=== PATIENT | male | born 1960 ===

== ENCOUNTER → 2023-08-04 06:38 | Outpatient (REF) | payer BC, SELFPAY ==
[2023-08-04 08:49] LABS: Blood Urea Nitrogen 18 mg/dl (9-20); Calcium 9.8 mg/dl (8.4-10.2); Carbon Dioxide 27 mmol/L (22-30); Chloride 102 mmol/L (98-107); Glucose 209 mg/dl (70-99); Potassium 4.1 mmol/L (3.5-5.1); Sodium 139 mmol/L (135-145); eGFR > 60.00
[2023-08-04 08:50] LABS: Glycohemoglobin (HgbA1c) 10.7 % (4.0-5.6)
[2023-08-04 09:23] LABS: PSA, Total - Screen 1.01 ng/ml (0.0-4.0); TSH Reflex To Free T4 0.77 uIU/ml (0.47-4.68)
== END ==
LOC: REG 06:38
PROVIDERS: ATTENDING PHYSICIAN Emergency Medicine
DX: R73.01 Impaired fasting glucose (principal); Z12.5 Encounter for screening for malignant neoplasm of prostate; Z00.00 Encounter for general adult medical examination without abnormal findings; E66.09 Other obesity due to excess calories; Z68.33 Body mass index [BMI] 33.0-33.9, adult
CPT/HCPCS: 36415; 80048; 83036; 84443; G0103

== ENCOUNTER → 2023-09-19 07:52 | Outpatient (REF) | payer BC, SELFPAY | LOC: RAD 07:52 | PROVIDERS: ATTENDING PHYSICIAN Emergency Medicine | DX: Z87.442 Personal history of urinary calculi (principal); R10.9 Unspecified abdominal pain | CPT/HCPCS: 76770 ==

== ENCOUNTER 2023-11-11 18:34 | Emergency (ER) | payer BC, SELFPAY ==
[2023-11-11 18:55] LABS: % Basophils 0.6 % (0-2); % Eosinophils 1.6 % (0-6); % Immature Granulocytes 0.2 % (0-0.5); % Lymphocytes 16.6 % (20.5-51.1); % Monocytes 6.2 % (1.7-9.3); % Neutrophils 74.8 % (42.2-75.2); Absolute Basophils 0.1 10^3/uL (0-0.2); Absolute Eosinophils 0.2 10^3/uL (0-0.7); Absolute Monocytes 0.8 10^3/uL (0.1-0.6); Absolute Neutrophils 9.2 10^3/uL (1.4-6.5); Hematocrit 38.7 % (39.0-52.0); Hemoglobin 13.9 g/dL (13.0-18.0); Mean Corp Hgb Conc. 35.9 g/dL (33.0-37.0); Mean Corpuscular Hgb 29.8 pg (27.0-31.0); Mean Platelet Volume 8.8 fL (7.4-10.4); Nucleated Red Blood Cells % 0 % (-); Platelet Count 204 10^3/uL (130-400); Red Blood Cell Count 4.66 10^6/uL (4.70-6.10); Red Cell Dist. Width 13.2 % (11.5-14.5); White Blood Cell Count 12.3 10^3/uL (4.8-10.8)
[2023-11-11 19:41] LABS: ALT (SGPT) 25 U/L (0-50); AST (SGOT) 25 U/L (17-59); Albumin 4.8 g/dl (3.5-5.0); Alkaline Phosphatase 55 U/L (38-126); Blood Urea Nitrogen 28 mg/dl (9-20); Calcium 9.8 mg/dl (8.4-10.2); Carbon Dioxide 29 mmol/L (22-30); Chloride 103 mmol/L (98-107); Glucose 128 mg/dl (70-99); Potassium 4.5 mmol/L (3.5-5.1); Sodium 141 mmol/L (135-145); Total Bilirubin 0.6 mg/dl (0.2-1.3); Total Protein 7.7 g/dl (6.3-8.2); eGFR > 60.00
--- NOTE | 2023-11-11 20:21 | ED.GENMED ---
History of Present Illness
<Eddie Medina PA-C - Last Filed: 11/13/23 07:12>
General
Chief Complaint: Flank Pain
Time Seen by Provider: 11/11/23 20:02
History of Present Illness
History of Present Illness:
63 yo male presents for eval of bilateral, R>L flank pain. L flank ongoing for several weeks, mild in nature. R flank began yesterday, acutely severe and colicky. Does not feel comparable to past kidney stones. Did have a renal US in early september
showing bilateral non obstructing stones. No fevers or chills.
Review of Systems
<DOUGLAS uMñoz Last Filed: 11/13/23 07:12>
Review of Systems
Allergies reviewed?: Yes
All Other Systems: ROS reviewed and negative except as documented in HPI and ROS
Phy Exam
<Eddie Medina PA-C - Last Filed: 11/13/23 07:12>
Physical Exam
Physical Exam:
GEN: Well appearing, NAD, WDWN
Eyes: PERRLA, EOMs intact, no scleral icterus
HENT: NCAT, oral mucosa moist
Lungs: CTAB, no wheezes, rales, rhonchi, normal chest wall excursion
Cardiac: RRR, no M/R/G, no peripheral edema. Radial pulses 2+ bilat
Abdomen: S, NT, ND, NABS, no masses or hepatosplenomegaly
Neuro: AO x 3
MSK: No gross deformity or ecchymosis. No edema. No digital clubbing
Skin: No rashes, petechiae. Normal color, no pallor or jaundice.
Psych: Calm, cooperative, proper hygiene
Course
<DOUGLAS Muñoz Last Filed: 11/13/23 07:12>
Orders/Labs/Results
Orders:
Orders
11/11/23 18:50
Complete Blood Count/With Diff Urgent
Comprehensive Metabolic Panel Urgent
Creatine Phosphokinase Urgent
Comment: ADD ON
11/11/23 20:20
Add On- LAB Urgent
Tests Added?: CPK
CT Abd/Pel (IV only)-DH only Urgent
Comment:
Reason For Exam: bilateral flank pain
11/11/23 20:25
Urinalysis Reflex To Culture Urgent
Date Specimen was Collected: 11/11/23
Time Specimen was Collected: 18:44
Urine Microscopic Reflex Cult Urgent
11/11/23 21:09
Ketorolac [Toradol] 15 mg IV NOW STA
Abnormal Lab Results
11/11/23 11/11/23
18:50 20:25
WBC 12.3 H 10^3/uL
(4.8-10.8)
RBC 4.66 L 10^6/uL
(4.70-6.10)
Hct 38.7 L %
(39.0-52.0)
Absolute Neuts (auto) 9.2 H 10^3/uL
(1.4-6.5)
Absolute Monos (auto) 0.8 H 10^3/uL
(0.1-0.6)
Lymphocytes % 16.6 L %
(20.5-51.1)
BUN 28 H mg/dl
(9-20)
Glucose 128 H mg/dl
(70-99)
Creatine Kinase 49 L U/L
(55-170)
Ur Occult Blood Reflex 4+ A
(Negative)
Leukocyte Esterase Rfl Trace A
(Negative)
Urine RBC 90-100 A /HPF
(0-2)
Urine Bacteria (Reflex) Few A
(Negative)
Urine Glucose 3+ A
(Negative)
11/11/23 18:50
11/11/23 18:50
Vital Signs
Initial and Last Documented VS:
Initial Vital Signs
Temp Pulse Resp Pulse Ox
99.5 F 67 18 97
11/11/23 18:39 11/11/23 18:39 11/11/23 18:39 11/11/23 18:39
Last Documented Vital Signs
Temp Pulse Resp BP Pulse Ox
99.5 F 67 18 136/88 97
11/11/23 18:39 11/11/23 18:39 11/11/23 18:39 11/11/23 23:42 11/11/23 18:39
<MUKESH Braun - Last Filed: 11/11/23 23:41>
Orders/Labs/Results
Orders:
Orders
11/11/23 18:50
Complete Blood Count/With Diff Urgent
Comprehensive Metabolic Panel Urgent
Creatine Phosphokinase Urgent
Comment: ADD ON
11/11/23 20:20
Add On- LAB Urgent
Tests Added?: CPK
CT Abd/Pel (IV only)-DH only Urgent
Comment:
Reason For Exam: bilateral flank pain
11/11/23 20:25
Urinalysis Reflex To Culture Urgent
Date Specimen was Collected: 11/11/23
Time Specimen was Collected: 18:44
Urine Microscopic Reflex Cult Urgent
11/11/23 21:09
Ketorolac [Toradol] 15 mg IV NOW STA
Abnormal Lab Results
11/11/23 11/11/23
18:50 20:25
WBC 12.3 H 10^3/uL
(4.8-10.8)
RBC 4.66 L 10^6/uL
(4.70-6.10)
Hct 38.7 L %
(39.0-52.0)
Absolute Neuts (auto) 9.2 H 10^3/uL
(1.4-6.5)
Absolute Monos (auto) 0.8 H 10^3/uL
(0.1-0.6)
Lymphocytes % 16.6 L %
(20.5-51.1)
BUN 28 H mg/dl
(9-20)
Glucose 128 H mg/dl
(70-99)
Creatine Kinase 49 L U/L
(55-170)
Ur Occult Blood Reflex 4+ A
(Negative)
Leukocyte Esterase Rfl Trace A
(Negative)
Urine RBC 90-100 A /HPF
(0-2)
Urine Bacteria (Reflex) Few A
(Negative)
Urine Glucose 3+ A
(Negative)
11/11/23 18:50
11/11/23 18:50
Vital Signs
Initial and Last Documented VS:
Initial Vital Signs
Temp Pulse Resp Pulse Ox
99.5 F 67 18 97
11/11/23 18:39 11/11/23 18:39 11/11/23 18:39 11/11/23 18:39
Last Documented Vital Signs
Temp Pulse Resp BP Pulse Ox
99.5 F 67 18 136/88 97
11/11/23 18:39 11/11/23 18:39 11/11/23 18:39 11/11/23 23:42 11/11/23 18:39
<Eddie Medina PA-C - Last Filed: 11/13/23 07:12>
MDM/Problems Addressed
MDM/Problems Addressed:
63-year-old male presents with right flank pain, suspect most likely ureteral none, less likely UTI. CT is pending, signed out to Vilma Lindsay [employer]OUNTER awaiting results.
<MUKESH Braun - Last Filed: 11/11/23 23:41>
MDM/Problems Addressed
MDM/Problems Addressed:
63-year-old male presents with right flank pain, suspect most likely ureteral none, less likely UTI. CT is pending, signed out to Vilma Lindsay NP awaiting results.
2339: CAT scan shows 1-2 mm obstructing right UVJ calculus there is a large Dacron calculus involving the left renal pelvis patient comfortable going home while
<MUKESH Braun - Last Filed: 11/11/23 23:41>
*Critical Care Note
Total Time (30-74mins, 75-104mins- exclusive of procedures): Not Applicable
ED Attending Note
<Eddie Medina PA-C - Last Filed: 11/13/23 07:12>
-
Portions of this chart may have been created with voice recognition software.� Occasional wrong word or��sound alike� substitutions may have occurred due to the inherent limitations of voice recognition software.
Discharge Plan
Departure
Patient Disposition: Home (Routine Discharge)
Date of Disposition: 11/11/23
Time of Disposition: 23:39
Patient with high blood pressure during this ER visit?: No
Condition: Fair
Covid-19: Not Applicable
Discharge Problem:
Acute right flank pain
Instructions: Kidney Stones (DC), BLOOD PRESSURE, Narcotic Pain Medication
Prescriptions:
New
tamsulosin [Flomax] 0.4 mg capsule
0.4 mg PO HS Qty: 10 0RF
diclofenac sodium 75 mg tablet,delayed release (DR/EC)
75 mg PO BID Qty: 12 0RF
oxycodone-acetaminophen [Percocet] 5-325 mg tablet
1 tab PO Q6HPRN PRN (Reason: pain) Qty: 8 0RF
No Action
lisinopril 20 MG tablet
20 mg PO DAILY
clopidogrel 75 MG tablet
75 mg PO DAILY
metoprolol tartrate 50 MG tablet
50 mg PO BID
nitroglycerin 0.4 MG tablet, sublingual
0.4 mg sublingual [id number] PRN (Reason: chest pain) Qty: 25 3RF
aspirin 81 MG tablet,chewable
81 mg PO DAILY Qty: 1 0RF
rosuvastatin 20 MG tablet
20 mg PO QPM Qty: 30 3RF
Referrals:
Ellen Arboleda MD [Family Provider] -
Inder Ramirez MD [Active] -
Activity Restrictions/Additional Instructions:
As discussed stay well-hydrated strain all urine. Follow-up with urology in the next several days call tomorrow to make an appointment. You may take Tylenol for discomfort pain medication was sent to pharmacy along with Flomax. Return to the ER
if any worsening of symptoms
Interventions
Interventions:
*Risk Screen - Suicide Last Done: 11/11/23 20:00
*General Assessment Last Done: 11/11/23 18:39
*Neglect/Abuse Screening Last Done: 11/11/23 18:39
*ED COVID-19 Vaccine History Last Done: 11/11/23 20:00
*Nursing Disposition Last Done: 11/11/23 23:48
BA-Dhyohv-Oyoufxnijc Assessment Last Done: 11/11/23 20:14
ED-Male Genitourinary Assessment Last Done: 11/11/23 20:14
Discharge Date and Time
Discharge Date/Time: 11/11/23 23:49
Print Language: LITHUANIAN
[2023-11-11 20:30] LABS: Urine Albumin Trace (Neg - Trace); Urine Bilirubin Negative (Negative); Urine Character Slightly Cloudy (Clear); Urine Color Yellow; Urine Glucose 3+ (Negative); Urine Ketone Negative (Negative); Urine Leukocyte Trace (Negative); Urine Nitrite Negative (Negative); Urine Occult Blood 4+ (Negative); Urine Specific Gravity 1.015 (<1.030); Urine Urobilinogen Negative (Neg - 1+)
[2023-11-11 20:36] VITALS: BP 122/71
[2023-11-11 20:37] LABS: Urine Squamous Cell 0-2 /LPF (Few)
[2023-11-11 20:38] LABS: Urine Red Blood Cell 90-100 /HPF (0-2); Urine White Cell 0-2 /HPF (0-5)
[2023-11-11 20:39] LABS: Urine Bacteria Few (Negative)
[2023-11-11 20:50] LABS: Creatine Phosphokinase 49 U/L (55-170)
[2023-11-11] MEDS: TORADOL 15 MG IV (21:18)
[2023-11-11 23:42] VITALS: BP 136/88
== END 2023-11-11 23:49 | disposition home or self-care (01) ==
LOC: EMR 18:34
PROVIDERS: Emergency Medicine; EMERGENCY PHYSICIAN Emergency Medicine; FAMILY PHYSICIAN Emergency Medicine
DX: R10.9 Unspecified abdominal pain (principal); N20.2 Calculus of kidney with calculus of ureter; Z79.82 Long term (current) use of aspirin; Z87.442 Personal history of urinary calculi
CPT/HCPCS: 99285; 96374; 74177; 80053; 81003; 81015; 82550; 85025; Q9967

== ENCOUNTER → 2023-11-21 06:19 | Outpatient (REF) | payer BC, SELFPAY ==
[2023-11-21 07:25] LABS: Urine Albumin Trace (Neg - Trace); Urine Bilirubin Negative (Negative); Urine Character Slightly Cloudy (Clear); Urine Color Yellow; Urine Glucose 3+ (Negative); Urine Ketone Negative (Negative); Urine Leukocyte Negative (Negative); Urine Nitrite Negative (Negative); Urine Occult Blood 4+ (Negative); Urine Urobilinogen Negative (Neg - 1+)
[2023-11-21 07:38] LABS: Blood Urea Nitrogen 21 mg/dl (9-20); Calcium 9.8 mg/dl (8.4-10.2); Carbon Dioxide 34 mmol/L (22-30); Chloride 100 mmol/L (98-107); Glucose 121 mg/dl (70-99); Potassium 4.1 mmol/L (3.5-5.1); Sodium 139 mmol/L (135-145); eGFR > 60.00
[2023-11-21 09:08] LABS: Microalbumin, Random Urine 8.6 mg/dl (0.6-1.7)
[2023-11-21 09:45] LABS: Glycohemoglobin (HgbA1c) 6.4 % (4.0-5.6)
[2023-11-21 09:57] LABS: Urine Amorphous Seen; Urine Mucus Moderate; Urine Red Blood Cell >100 /HPF (0-2); Urine White Cell 0-2 /HPF (0-5)
[2023-11-21 11:45] LABS: Microalbumin/creatinine Ratio 43.2 mg/g
== END ==
LOC: REG 06:19
PROVIDERS: ATTENDING PHYSICIAN Emergency Medicine
DX: E11.65 Type 2 diabetes mellitus with hyperglycemia (principal); E11.69 Type 2 diabetes mellitus with other specified complication
CPT/HCPCS: 36415; 80048; 81003; 81015; 82043; 82570; 83036

== ENCOUNTER 2023-12-17 11:03 | Inpatient (IN) | payer BC, SELFPAY ==
[2023-12-17] VITALS (15 sets, daily range): BP systolic 61–181; BP diastolic 69–95
[2023-12-17 09:53] LABS: Hematocrit 42.2 % (39.0-52.0); Hemoglobin 14.9 g/dL (13.0-18.0); Mean Corp Hgb Conc. 35.3 g/dL (33.0-37.0); Mean Corpuscular Volume 85.1 fL (80.0-94.0); Platelet Count 206 10^3/uL (130-400); Red Blood Cell Count 4.96 10^6/uL (4.70-6.10); Red Cell Dist. Width 13.2 % (11.5-14.5); White Blood Cell Count 7.6 10^3/uL (4.8-10.8)
[2023-12-17 10:03] LABS: PT 14.2 Sec (11.4-14.6)
[2023-12-17 10:08] LABS: Glucose 121 mg/dl (70-99)
[2023-12-17] MEDS: ROCEPHIN 2000 MG IV (10:36)
[2023-12-17] MEDS: STERILE WATER FOR INJECTION 20 ML IV (10:36)
--- NOTE | 2023-12-17 12:12 | IR.POSTOP ---
IRAD Post Procedure Note
-
Description of Findings:
Successful Left PCNU placement for PCNL access.
[2023-12-17 12:37] LABS: Glucose - Point of Care 90 mg/dl (70-99)
[2023-12-17 13:40] LABS: Glucose - Point of Care 98 mg/dl (70-99)
[2023-12-17] MEDS: ULTRAM 50 MG PO (14:11)
[2023-12-17] MEDS: ROXICODONE 5 MG PO (16:58)
[2023-12-17] MEDS: APRESOLINE 10 MG IV (16:58)
[2023-12-17] MEDS: GLUCOPHAGE 500 MG PO (16:59)
[2023-12-17] MEDS: CRESTOR 20 MG PO (17:03)
--- NOTE | 2023-12-17 17:47 | HP.FOC2 ---
Focused History & Physical
Chief Complaint
HPI:
Chief Complaint: left staghorn stone
HPI / Indication for Planned Procedure:
63M w/ incidentally noted large left staghorn stone w/o hydronephrosis on CT imaging.
Admitted post-procedure from IR (s/p left PCNU placement w/ access to bladder) earlier today.
Scheduled for left PCNL tomorrow.
Relevant Past Medical History: Diabetes and Hypertension
Relevant Social History: Negative
Relevant Family History: Negative
Relevant Past Surgical History: Negative
Review of Systems
Review of Pertinent Systems: All Systems Negative Except for the Following Positives (left flank pain (s/p left PCNU placement 12/16), bloody urine output per left PCNU)
Medication
See Medication form for detailed medications: Yes
Medication List (including Herbals & OTC):
lisinopril 20 mg tablet 20 mg PO DAILY Blood Pressure 05/29/16
metoprolol tartrate 50 mg tablet 50 mg PO BID Blood Pressure 05/29/16
rosuvastatin 20 mg tablet 20 mg PO QPM #30 tabs 05/29/16
amlodipine 2.5 mg tablet 2.5 mg PO DAILY Blood Pressure 12/16/23
dapagliflozin propanediol 5 mg tablet (Farxiga) 5 mg PO DAILY Diabetes 12/16/23
ezetimibe 10 mg tablet 10 mg PO DAILY High Cholesterol 12/16/23
metformin 500 mg tablet 500 mg PO BIDWMEAL Diabetes 12/16/23
Medications Reviewed: Yes
Allergies and Reactions
Patient has Allergies: No
Noted Allergies and Reactions:
Allergy/AdvReac Type Severity Reaction Status Date / Time
No Known Allergies Allergy Verified 12/17/23 10:23
Pertinent Physical Exam
All Other Systems: Negative
Head/Neck: Normal
Lungs: Normal
Heart: Normal
Abdomen: Normal
Extremities: Normal
Neurological: Normal
Other: left PCNU w/ bag drainage
Diagnosis / Assessment
Left staghorn stone
Plan / Procedure
- s/p left PCNU placement earlier today by IR
- Admitted to Urology (James)
- regular diet
- NPO@MN
- IV Ceftriaxone 1g q24hrs
- To OR tomorrow for left PCNL
- Surgical consents signed on chart
D/w RN.
D/w Hospitalist.
Discussed plan of care w/ patient and spouse this evening.
Anesthesia/Sedation to be done by Anesthesia Provider: Yes
--- NOTE | 2023-12-17 18:10 | CON.HOSP ---
Family Physician
-
Family Physician: Ellen Arboleda MD
Chief Complaint
-
Left Flank pain/discomfort
History of Present Illness
63M DM HTN HLD here incidental finding left staghorn stone w/o hydronephrosis noted on CT imaging. Admitted Urology service post left PCNU placement by IR- in preparation for PCNL next day. Hospitalist service consulted for further management
hypertension and diabetes.
Seen and examined at bedside, patient in no acute distress sitting up comfortably in chair. Reports overall feeling well. Had episode of pain left flank improved with prn pain meds. VSS on room air.
Medical History
Past Medical History
Past Medical History: Reports Other (as above)
Past Surgical History: Reports Other (as above)
Social History
Tobacco: Non-smoker
Alcohol: None
Drug: None
Personal:
Living: With Family
Family History
Family History: Reviewed & Not Pertinent
Allergies / Home Medications
Allergies reflects when Allergies were last updated in [facility].
Home Medications with original date entered in [facility]
Allergy/Medication List:
Allergies
Allergy/AdvReac Type Severity Reaction Status Date / Time
No Known Allergies Allergy Verified 12/17/23 10:23
Home Medications
lisinopril 20 mg tablet 20 mg PO DAILY Blood Pressure 05/29/16
metoprolol tartrate 50 mg tablet 50 mg PO BID Blood Pressure 05/29/16
rosuvastatin 20 mg tablet 20 mg PO QPM #30 tabs 05/29/16
amlodipine 2.5 mg tablet 2.5 mg PO DAILY Blood Pressure 12/16/23
dapagliflozin propanediol 5 mg tablet (Farxiga) 5 mg PO DAILY Diabetes 12/16/23
ezetimibe 10 mg tablet 10 mg PO DAILY High Cholesterol 12/16/23
metformin 500 mg tablet 500 mg PO BIDWMEAL Diabetes 12/16/23
Review of Systems
-
A 12 point Review of Systems was completed except as noted: Yes
Constitutional: Reports Other (as below)
Physical Exam
Vital Signs
Vital Signs
Temp Pulse Resp BP Pulse Ox
97.9 F 90 16 130/78 97
12/17/23 18:00 12/17/23 18:00 12/17/23 18:00 12/17/23 18:00 12/17/23 18:00
Physical Exam
HEENT: Other (as below)
Laboratory Results
-
Laboratory Results
12/17/23 09:32
12/17/23 09:32
PT 14.2 Sec (11.4-14.6) 12/17/23 09:32
INR 1.10 12/17/23 09:32
Impression / Plan
-
ROS
General: Denies fever chills night sweats unexpected weight loss
Neuro: Denies seizure shaking loss of consciousness dizziness vertigo
Psych: denies depression hallucinations confusion manic episodes
Endocrine: Denies polyuria polydipsia polyphagia heat/cold intolerance
HEENT: Denies blindness visual disturbances epistaxis
Pulmonary: denies coughing hemoptysis sneezing sob dyspnea on exertion
Cardiovascular: denies chest pain palpitations leg swelling
Hematology: denies signs symptoms of anemia easy bruising/bleeding
Gastrointestinal: denies nausea vomiting diarrhea constipation hematemesis hematochezia melena
Genito-Urinary: reports left sided flank discomfort hematuria with clots following PCN placement
Musculoskeletal: denies joint pain weakness
Dermatology: denies rash laceration bruising
Physical Exam
General: No pallor, cyanosis, or jaundice.
HEENT: Throat clear. PERRLA Normocephalic atraumatic
NECK: Supple. No JVD Carotid Bruits
RESPIRATORY: Lungs clear to auscultation. No crackles wheezes stridor
CVS: S1, S2 normal. RRR. No murmur, rub or gallop.
ABDOMEN: Soft, non-tender. No distension. BS+/normal.
EXTREMITIES: No peripheral cyanosis or edema.
Genito-urinary: Left PCN tube in place
AIRCRAFT ENGINE MECHANIC: AOx3. No focal deficits.
IMPRESSION:
63M DM HTN HLD here incidental finding left staghorn stone w/o hydronephrosis noted on CT imaging. Admitted Urology service post left PCNU placement by IR- in preparation for PCNL next day. Hospitalist service consulted for further management
hypertension and diabetes.
PLAN:
#Lt staghorn calculus
#s/p Lt PCN placement with IR
npo after midnight for Lt PCNL
cont management as per primary Urology
pain control as per primary
#HTN
cont home antihypertensives w/ holding parameters
Metoprolol Amlodipine Lisinopril
Elevated values likely d/t pain/discomfort
could consider increasing Amlodipine from 2.5 to 5 mg daily if bp remains uncontrolled despite pain control
#DM
recent A1c 6.4 within goal diabetes mgmt <7
noted prior A1c 10 before start of diabetes medications and lifestyle management
cont home metformin Farxiga
Low dose sliding scale
#HLD
cont home ezetimibe and statin
I spent a total of 76 minutes with the patient or on the floor. More than 50% of this time involved counseling and coordination of care.
[2023-12-17] MEDS: LOPRESSOR 50 MG PO (20:59)
[2023-12-17] MEDS: TYLENOL 650 MG PO (21:03)
[2023-12-17] MEDS: NSS 1000 IV (22:28)
[2023-12-17] MEDS: FLUSH (NSS) 1 FLUSH IV (22:29)
[2023-12-17 22:46] LABS: Glucose - Point of Care 173 mg/dl (70-99)
[2023-12-18] VITALS (13 sets, daily range): BP systolic 139–180; BP diastolic 77–101; BMI 30.6
[2023-12-18] MEDS: ULTRAM 50 MG PO ×3 (03:19→23:08)
[2023-12-18 05:36] LABS: % Basophils 0.3 % (0-2); % Eosinophils 0.2 % (0-6); % Immature Granulocytes 0.3 % (0-0.5); % Lymphocytes 12.6 % (20.5-51.1); % Monocytes 5.9 % (1.7-9.3); % Neutrophils 80.7 % (42.2-75.2); Absolute Lymphocytes 1.4 10^3/uL (1.2-3.4); Absolute Monocytes 0.6 10^3/uL (0.1-0.6); Absolute Neutrophils 8.7 10^3/uL (1.4-6.5); Hematocrit 38.9 % (39.0-52.0); Hemoglobin 14.1 g/dL (13.0-18.0); Mean Corp Hgb Conc. 36.2 g/dL (33.0-37.0); Mean Corpuscular Hgb 30.2 pg (27.0-31.0); Mean Corpuscular Volume 83.3 fL (80.0-94.0); Mean Platelet Volume 8.9 fL (7.4-10.4); Nucleated Red Blood Cells % 0 % (-); Platelet Count 203 10^3/uL (130-400); Red Blood Cell Count 4.67 10^6/uL (4.70-6.10); Red Cell Dist. Width 13.2 % (11.5-14.5); White Blood Cell Count 10.8 10^3/uL (4.8-10.8)
[2023-12-18 06:07] LABS: Blood Urea Nitrogen 23 mg/dl (9-20); Calcium 9.4 mg/dl (8.4-10.2); Carbon Dioxide 25 mmol/L (22-30); Chloride 102 mmol/L (98-107); Estimated Creatinine Clearance 103 ml/min; Glucose 142 mg/dl (70-99); Magnesium 1.9 mg/dl (1.6-2.3); Phosphorus 3.8 mg/dl (2.5-4.5); Potassium 3.9 mmol/L (3.5-5.1); Sodium 142 mmol/L (135-145); eGFR > 60.00
[2023-12-18 06:30] LABS: Glucose - Point of Care 145 mg/dl (70-99)
--- NOTE | 2023-12-18 07:52 | W.PN.HOSP.TC ---
Today's Communication/Plan
-
pain control
blood pressure control
glycemic control
Assessment / Plan
Assessment / Plan
Physical Exam
General: No pallor, cyanosis, or jaundice.
HEENT: Throat clear. PERRLA Normocephalic atraumatic
NECK: Supple. No JVD Carotid Bruits
RESPIRATORY: Lungs clear to auscultation. No crackles wheezes stridor
CVS: S1, S2 normal. RRR. No murmur, rub or gallop.
ABDOMEN: Soft, non-tender. No distension. BS+/normal.
EXTREMITIES: No peripheral cyanosis or edema.
Genito-urinary: Left PCN tube in place
PROSTHETIC LAB TECHNICIAN: AOx3. No focal deficits.
IMPRESSION:
63M DM HTN HLD here incidental finding left staghorn stone w/o hydronephrosis noted on CT imaging. Admitted Urology service post left PCNU placement by IR- in preparation for PCNL next day. Hospitalist service consulted for further management
hypertension and diabetes.
PLAN:
#Lt staghorn calculus
#s/p Lt PCN placement with IR
#s/p Lt PCNL
cont management as per primary Urology
pain control as per primary
#HTN
cont home antihypertensives w/ holding parameters
Metoprolol Amlodipine Lisinopril
Elevated values likely d/t pain/discomfort
could consider increasing Amlodipine from 2.5 to 5 mg daily if bp remains uncontrolled despite pain control
#DM
recent A1c 6.4 within goal diabetes mgmt <7
noted prior A1c 10 before start of diabetes medications and lifestyle management
cont home metformin Farxiga
Low dose sliding scale
#HLD
cont home ezetimibe and statin
I spent a total of 40 minutes with the patient or on the floor. More than 50% of this time involved counseling and coordination of care.
Anticipated Discharge: 24 - 48 hours
Subjective/Interval History
-
Date of Service: December 18, 2023
Seen status post PCNL. No acute distress. Pain manageable with current pain regimen.
Objective Data
-
Labs:
Laboratory Results
12/18/23
05:06
WBC 10.8
Hgb 14.1
Hct 38.9 L
Plt Count 203
Sodium 142
Potassium 3.9
Chloride 102
Carbon Dioxide 25
BUN 23 H
Creatinine 0.8
Glucose 142 H
Calcium 9.4
Vital Signs:
Vital Signs
Temp Pulse Resp BP Pulse Ox
98.4 F 77 17 149/79 97
12/18/23 07:25 12/18/23 07:25 12/18/23 07:25 12/18/23 07:25 12/18/23 07:25
I&O
12/17/23 12/18/23 12/19/23
06:59 06:59 06:59
Intake Total 730 / 730 600 / 600
Output Total 390 / 390 400 / 400
Balance 340 / 340 200 / 200
[2023-12-18] MEDS: ZESTRIL 20 MG PO (09:26)
[2023-12-18] MEDS: FARXIGA 5 MG PO (09:26)
[2023-12-18] MEDS: ZETIA 10 MG PO (09:26)
[2023-12-18] MEDS: GLUCOPHAGE 500 MG PO ×2 (09:26→17:06)
[2023-12-18] MEDS: LOPRESSOR 50 MG PO ×2 (09:27→19:32)
[2023-12-18] MEDS: NORVASC 2.5 MG PO (09:27)
[2023-12-18] MEDS: NSS 1000 IV ×2 (09:34→14:18)
[2023-12-18 11:29] LABS: Glucose - Point of Care 117 mg/dl (70-99)
--- NOTE | 2023-12-18 11:30 | PTCARENOTE ---
Patient transferred to OR Hold area.
--- NOTE | 2023-12-18 13:41 | W.IMMPOSTOP ---
Surgical Immed Post Op Note
-
Primary Surgeon: James
Assisting Surgeon: Carlos
Pre-op Diagnosis: Large left staghorn stone (>4.0 cm), non-obstructing left lower pole stones
Post-op Diagnosis: Same
Procedure Performed:
1. Removal of left PCNU
2. Left percutaneous nephrolithotomy (>4.0 cm)
3. Left nephroureteral catheter insertion
4. Left nephrostomy tube insertion
5. Left antegrade nephrostogram
Anesthesia Type: GETA
Specimen / Cultures: Stones for analysis/None
Estimated Blood Loss: 10 cc
Drains:
1. 16Fr Wolf catheter
2. 20 Fr [place] tip catheter as left PCN (3 cc contrast in balloon)
3. Left 5Fr open-ended ureteral catheter as left PCNU (capped)
Complications: None
Operative Findings:
1. Large (>4.0 cm) staghorn stone completely fragmented via Trilogy device - final pyeloscopy w/o residual stone fragments.
2. Small non-obstructing LLP stones unable to be accessed from nephrostomy site - noted on nephrostogram.
3. Final left antegrade nephrostogram w/ excellent flow of contrast into kidney and down left ureter w/o extravasation.
[2023-12-18 13:54] LABS: Glucose - Point of Care 121 mg/dl (70-99)
--- NOTE | 2023-12-18 15:14 | CM ---
Patient seen at bedside with present. Patient stated that he lives with in a 2 story home. Patient has no DME or past need for SNF/VN. Patient PCP is Dr. Arboleda and he uses the [facility] in [place]. Patient plan is for discharge home with no
needs. CM will continue to follow for discharge planning needs.
Plan; home with no needs anticipated.
[2023-12-18] MEDS: STERILE WATER FOR INJECTION IV (15:15)
[2023-12-18] MEDS: ROCEPHIN IV (15:15)
--- NOTE | 2023-12-18 15:28 | PTCARENOTE ---
Pt arrived to 2S in bed. Full assessment completed. L flank DSG saturated and falling off pt, DSG removed and changed with Samy [employer]EN[employer] PIPE LAYER HELPER, ok per Dr Ramirez. Nephrostomy and guzman catheter intact and draining blood tined urine, secondary capped drain
noted. IVF infusing per order. PRN tramadol provided for c/o L flank pain 5/10. Bed locked and in the lowest position, safety maintained. Pt verbalized understanding to ring for assistance getting OOB. Oriented to room and call shun, spouse at
bedside.
[2023-12-18 16:04] LABS: Glucose - Point of Care 116 mg/dl (70-99)
[2023-12-18] MEDS: CRESTOR 20 MG PO (17:06)
[2023-12-18] MEDS: ROXICODONE 5 MG PO (19:32)
[2023-12-18 21:13] LABS: Glucose - Point of Care 151 mg/dl (70-99)
[2023-12-19 03:00] VITALS: BP 151/81
[2023-12-19] MEDS: NSS 1000 IV (05:00)
[2023-12-19] MEDS: TYLENOL 650 MG PO (05:44)
[2023-12-19 07:05] VITALS: BP 152/83
[2023-12-19 07:15] LABS: Glucose - Point of Care 106 mg/dl (70-99)
[2023-12-19 07:18] LABS: % Basophils 0.1 % (0-2); % Eosinophils 0.1 % (0-6); % Immature Granulocytes 0.4 % (0-0.5); % Lymphocytes 13.5 % (20.5-51.1); % Monocytes 8.2 % (1.7-9.3); % Neutrophils 77.7 % (42.2-75.2); Absolute Immature Granulocytes 0.1 10^3/uL (0-0.05); Absolute Monocytes 1.2 10^3/uL (0.1-0.6); Absolute Neutrophils 11.4 10^3/uL (1.4-6.5); Hematocrit 41.5 % (39.0-52.0); Hemoglobin 14.4 g/dL (13.0-18.0); Mean Corp Hgb Conc. 34.7 g/dL (33.0-37.0); Mean Corpuscular Hgb 29.8 pg (27.0-31.0); Mean Corpuscular Volume 85.9 fL (80.0-94.0); Mean Platelet Volume 8.6 fL (7.4-10.4); Nucleated Red Blood Cells % 0 % (-); Platelet Count 231 10^3/uL (130-400); Red Blood Cell Count 4.83 10^6/uL (4.70-6.10); Red Cell Dist. Width 13.2 % (11.5-14.5); White Blood Cell Count 14.6 10^3/uL (4.8-10.8)
--- NOTE | 2023-12-19 07:40 | W.PN.URO.CBU ---
Today's Communication / Plan
-
- D/c Wolf catheter this AM
- To IR this AM for left antegrade nephrostogram + removal of left PCN ([place] tip catheter)
- Plan for d/c home later today if clinically stable
- eRx for Cephalexin BID x7 days + Tramadol sent to pharmacy
D/w patient.
D/w spouse (Fe).
Assessment / Plan
-
Large (>4 cm) left staghorn stone
Left lower pole renal stones
Post Op Day:
12/17: s/p left PCNL, antegrade nephrostogram, insertion nephroureteral stent, exchange of PCN
WBC minimally elevated post-op
H/H stable
Cr WNL
On jewels-op IV Ceftriaxone
Diagnosis
-
Date of Service: December 19, 2023
-
Patient Diagnosis:
Large (>4 cm) left staghorn stone
Left lower pole renal stones
Post Op Day:
12/17: s/p left PCNL, antegrade nephrostogram, insertion nephroureteral stent, exchange of PCN
Subjective
-
Feels great this morning.
Urine clear w/ slight burgundy tint in tubing, no clots.
Denies significant pain - only required Tramadol last night.
Objective
-
Vital Signs
Temp Pulse Resp BP Pulse Ox
97.8 F 73 16 151/81 98
12/19/23 03:00 12/19/23 03:00 12/19/23 03:00 12/19/23 03:00 12/19/23 03:00
Intake and Output
12/18/23 12/19/23 12/20/23
06:59 06:59 06:59
Intake Total 730 / 730 3330 / 3330
Output Total 390 / 390 2600 / 2600
Balance 340 / 340 730 / 730
Intake:
Oral fluids 480 / 480 1680 / 1680
IV fluids (Total) 1650 / 1650
IV piggybacks 250 / 250
Output:
Urinary Drain Output (Total) 390 / 390 1400 / 1400
Left Nephrostomy 1400 / 1400
Left Ureteral stent 390 / 390
Urine, Wolf 600 / 600
Urine, Voided 600 / 600
Other:
Number of approximated MODERATE 1 2
amounts of urine
Number of approximated LARGE 2
amounts of urine
Laboratory Results
12/19/23 06:14
Physical Exam
-
General - well developed, well nourished, no acute distress
Abdomen - soft, non-tender, non-distended, left PCN ([place] tip catheter) to drainage bag, left 5Fr ureteral catheter capped (nephroureteral stent)
Genitalia - normal, 16Fr Wolf catheter to drainage bag
Skin - warm & dry with no rash
Neuro - AOx3, no motor deficits
Extremities - no clubbing, no cyanosis, no edema
Care Review
Data Reviewed
Discussed with: Hospitalist, IRAD and Family
[2023-12-19 07:41] LABS: Blood Urea Nitrogen 23 mg/dl (9-20); Calcium 9.2 mg/dl (8.4-10.2); Carbon Dioxide 26 mmol/L (22-30); Chloride 101 mmol/L (98-107); Estimated Creatinine Clearance 92 ml/min; Glucose 121 mg/dl (70-99); Potassium 4.1 mmol/L (3.5-5.1); Sodium 142 mmol/L (135-145); eGFR > 60.00
[2023-12-19] MEDS: LOPRESSOR 50 MG PO (08:26)
[2023-12-19] MEDS: ZESTRIL 20 MG PO (08:26)
[2023-12-19] MEDS: ZETIA 10 MG PO (08:26)
[2023-12-19] MEDS: NORVASC 2.5 MG PO (08:26)
[2023-12-19] MEDS: ULTRAM 50 MG PO (08:27)
[2023-12-19] MEDS: GLUCOPHAGE 500 MG PO (09:05)
[2023-12-19] MEDS: FARXIGA 5 MG PO (09:05)
[2023-12-19] MEDS: ROCEPHIN 1000 MG IV (11:02)
[2023-12-19] MEDS: STERILE WATER FOR INJECTION 10 ML IV (11:05)
[2023-12-19 11:33] LABS: Glucose - Point of Care 141 mg/dl (70-99)
--- NOTE | 2023-12-19 14:09 | W.DS.TRANS ---
DC Summary - [place]
-
Discharge Instructions:
Discharge Diagnosis/Procedures left staghorn stone s/p left PCNL
Diet Regular
Activity No strenuous activity
Additional Activity No strenuous activity, heavy lifting >20 lbs, or
exercise x7 days after your surgery per
[place]
Driving Restrictions No driving for 24 hours
Bathing Restrictions OK to Shower
Blood Work not applicable
Wound Care not applicable
Instructions:
Stand-Alone Forms:
Changes to Home Medications: No
Discharge Medications:
DC Medications w/original date entered in [facility]
lisinopril 20 mg tablet 20 mg PO DAILY Blood Pressure 05/29/16
metoprolol tartrate 50 mg tablet 50 mg PO BID Blood Pressure 05/29/16
rosuvastatin 20 mg tablet 20 mg PO QPM #30 tabs 05/29/16
amlodipine 2.5 mg tablet 2.5 mg PO DAILY Blood Pressure 12/16/23
dapagliflozin propanediol 5 mg tablet (Farxiga) 5 mg PO DAILY Diabetes 12/16/23
ezetimibe 10 mg tablet 10 mg PO DAILY High Cholesterol 12/16/23
metformin 500 mg tablet 500 mg PO BIDWMEAL Diabetes 12/16/23
cephalexin 500 mg capsule 500 mg PO BID 7 days #14 caps 12/19/23
tramadol 50 mg tablet 50 mg PO Q8H PRN moderate pain #15 tabs 12/19/23
Home Medication Changes
Pending Results: Yes
Additional Pending Results:
Stone analysis
Total time spent discharging patient (in min): 45
--- NOTE | 2023-12-19 14:22 | CM ---
Pt for discharge today
Met with pt
to transport home
Plan - anticipate home no needs
[2023-12-23 18:50] LABS: Stone Analysis Mass 4787 mg
== END 2023-12-19 15:49 | disposition home or self-care (01) | DRG 661 ==
LOC: 2 SOUTH 11:03
PROVIDERS: Radiology Diagnostic Radiology; ADMITTING PHYSICIAN Surgery; CONSULT PHYSICIAN Internal Medicine; FAMILY PHYSICIAN Emergency Medicine
PROC: 0T9730Z Drainage of Left Ureter with Drainage Device, Percutaneous Approach (ICD-10-PCS; 2023-12-17)
PROC: 0TP930Z Removal of Drainage Device from Ureter, Percutaneous Approach (ICD-10-PCS; 2023-12-18)
PROC: 0T9430Z Drainage of Left Kidney Pelvis with Drainage Device, Percutaneous Approach (ICD-10-PCS; 2023-12-18)
PROC: 0TC14ZZ Extirpation of Matter from Left Kidney, Percutaneous Endoscopic Approach (ICD-10-PCS; 2023-12-18)
PROC: 0T773DZ Dilation of Left Ureter with Intraluminal Device, Percutaneous Approach (ICD-10-PCS; 2023-12-18)
DX: N20.0 Calculus of kidney (principal); E11.9 Type 2 diabetes mellitus without complications; I10 Essential (primary) hypertension; E78.5 Hyperlipidemia, unspecified; Z79.84 Long term (current) use of oral hypoglycemic drugs
CPT/HCPCS: 36415; 50431; 50433; 74420; 76000; 80048; 82365; 82947; 82962; 83735; 84100; 85025; 85027; 85610; 86850; 86900; 86901; 99152; 99153; A4300; C1726; C1758; C1769; C2625

== ENCOUNTER → 2024-01-21 06:47 | Outpatient (REF) | payer BC, SELFPAY | LOC: RAD 06:47 | PROVIDERS: ATTENDING PHYSICIAN Surgery; FAMILY PHYSICIAN Emergency Medicine | DX: N20.0 Calculus of kidney (principal) | CPT/HCPCS: 74176 ==

== ENCOUNTER 2024-02-16 06:42 | Day surgery (SDC) | payer BC, SELFPAY ==
[2024-02-16 15:38] VITALS: BP 140/81
[2024-02-16 15:43] VITALS: BMI 33.4
[2024-02-16 16:17] LABS: Glucose - Point of Care 128 mg/dl (70-99)
[2024-02-16 17:24] VITALS: BP 116/69; BP 140/81
[2024-02-16 17:46] LABS: Glucose - Point of Care 122 mg/dl (70-99)
[2024-02-16 17:54] VITALS: BP 120/75
[2024-02-16 18:10] VITALS: BP 139/80
[2024-02-16 18:29] VITALS: BP 149/82
== END 2024-02-16 18:40 | disposition home or self-care (01) ==
LOC: SDS 06:42
PROVIDERS: ATTENDING PHYSICIAN Surgery
DX: N13.2 Hydronephrosis with renal and ureteral calculous obstruction (principal); Z87.442 Personal history of urinary calculi
CPT/HCPCS: 52356; 74018; 76000; 82962; 93005; C1769; C1894; C2617

== ENCOUNTER 2025-04-10 20:29 | Inpatient (IN) | payer BC, SELFPAY ==
[2025-04-10 17:35] VITALS: BP 167/105
[2025-04-10 17:55] LABS: Hematocrit 45.1 % (39.0-52.0); Hemoglobin 15.7 g/dL (13.0-18.0); Mean Corp Hgb Conc. 34.8 g/dL (33.0-37.0); Mean Corpuscular Volume 84.6 fL (80.0-94.0); Nucleated Red Blood Cells % 0 % (-); Platelet Count 220 10^3/uL (130-400); Red Cell Dist. Width 13.2 % (11.5-14.5)
[2025-04-10 18:00] LABS: Urine Character Clear (Clear)
[2025-04-10 18:14] LABS: ALT (SGPT) 21 U/L (0-50); AST (SGOT) 21 U/L (17-59); Albumin 4.7 g/dl (3.5-5.0); Alkaline Phosphatase 68 U/L (38-126); Blood Urea Nitrogen 33 mg/dl (9-20); Calcium 10.0 mg/dl (8.4-10.2); Carbon Dioxide 27 mmol/L (22-30); Chloride 99 mmol/L (98-107); Glucose 327 mg/dl (70-99); Potassium 5.0 mmol/L (3.5-5.1); Sodium 136 mmol/L (135-145); Total Protein 8.1 g/dl (6.3-8.2); eGFR 41.51
[2025-04-10 18:18] LABS: Urine Urothelial Cell 0-2 /LPF (FEW)
--- NOTE | 2025-04-10 19:00 | ED.GENMED ---
History of Present Illness
General
Chief Complaint: Flank Pain
Source: patient
Exam Limitations: none
Time Seen by Provider: 04/10/25 18:48
Nursing documentation reviewed up to this point in time: agreed with
History of Present Illness
History of Present Illness:
64-year-old male with history of CAD, HTN, HLD, kidney stones, NIDDM, cardiac stent 2015 presents for right flank pain that started yesterday, feels like previous kidney stone. Pain was 01/21 yesterday driving home from [place]. Now pain 10/21, took
Ibuprofen earlier today. Denies fever, chills, feels a little nauseous, no vomiting.
Past History
Past History
ED Past Medical History: CAD, HTN, Hypercholesterolemia and Other (Kidney stones)
ED Past Surgical History: Cardiac (Stent 2015) and Urological (Removal of left kidney stone 12/2023)
Social History
Tobacco: Non-smoker
Alcohol: None
Personal:
Living: with family
Employment: Employed
Review of Systems
Review of Systems
Allergies reviewed?: Yes
All Other Systems: ROS reviewed and negative except as documented in HPI and ROS
Phy Exam
Physical Exam
Physical Exam:
GENERAL: No acute distress. A&Ox3.
CONSTITUTIONAL: Afebrile.
EYES: clear, conjunctivae normal
ENMT: moist mucus membranes
RESPIRATORY: Regular respirations, nonlabored, lungs clear.
CARDIOVASCULAR: Regular rate and rhythm, no murmurs, no rubs.
GI: Soft, nontender, normal BS. Left flank mildly tender to percussion.
MUSCULOSKELETAL: Moves with ease. Well perfused.
SKIN: Warm, dry, pink
PSYCH: Normal mood and affect. Well kept, interactive and appropriate
NEUROLOGIC: Awake, alert and oriented. No focal neurological deficits
Course
Orders/Labs/Results
Orders:
Orders
04/10/25 Dinner
Regular
At Your Request: Full Participation
04/10/25 17:47
Complete Blood Count/With Diff Urgent
Comprehensive Metabolic Panel Urgent
04/10/25 17:52
Urinalysis Reflex To Culture Urgent
Date Specimen was Collected: 04/10/25
Time Specimen was Collected: 17:38
Urine Microscopic Reflex Cult Urgent
Urine Culture Urgent
RUDDY Source: U
Specimen Description:
Date Specimen was Collected: 04/10/25
Time Specimen was Collected: 17:38
04/10/25 18:59
CT Abd/pel Without Iv Or Oral Urgent
Comment:
Reason For Exam: R flank pain
04/10/25 19:19
Ketorolac [Toradol] 15 mg .ROUTE .STK-MED ONE
Ondansetron Injectable [Zofran] 4 mg .ROUTE .STK-MED ONE
04/10/25 19:31
0.9% Sodium Chloride 1000 ml [Nss] 1,000 ml IV BOLUS
04/10/25 19:32
Ketorolac [Toradol] 15 mg IV NOW STA
Ondansetron Injectable [Zofran] 4 mg IV NOW STA
04/10/25 19:40
CefTRIAXone [Rocephin] 1,000 mg IV NOW STA
04/10/25 19:47
Blood Culture Q30M
RUDDY Source: Blood/Venous
Specimen Description:
Blood Culture Q30M
RUDDY Source: Blood/Venous
Specimen Description:
04/10/25 20:09
Admit/Transfer Patient As Directed
Co-Sign Provider:
Level of Care: Inpatient admission
Assign to:: Medical/Surgical
Physician / Group: calvin
Diagnosis: ureteral stone
Reason for Hospitalization: ureteral stone
Expected length of stay greater than two midnights?: Yes
ELOS- Estimated Length of Stay in days: 2
I certify the patient meets the requirements for IP care: Yes
Code Status As Directed
Resuscitation Status: Full Code
PRN Pain Medication Management As Directed
May give lesser potent ordered pain med per pt: Yes
preference::
Protocol:: Medication orders for pain may be administered in a
manner that supports deferring to patient preference
when the pt is:
- Requesting an ordered lesser potent pain medication.
Least to most potent pain medications are defined
as: acetaminophen < NSAID < tramadol < opioids
(morphine, oxycodone, hydromorphone).
- Requesting a lesser dose of the same medication IF
ORDERED.
- Requesting a less intrusive route of administration
if both routes are prescribed by the provider (PO <
IV).
04/10/25 20:53
0.9% Sodium Chloride 1000 ml [Nss] 1,000 ml IV 120 mls/hr
Acetaminophen [Tylenol] 650 mg PO Q4HPRN PRN
Dextrose 50%-Water [Dextrose 50% Syringe] 12.5 grams IV [id number] PRN
Glucagon [GlucaGen] 1 mg IM PRN PRN
HYDROmorphone [Dilaudid] 0.5 mg IV Q4HPRN PRN
Ondansetron Injectable [Zofran] 4 mg IV Q6HPRN PRN
04/10/25 20:53
UROLOGY CONSULT Routine
Consulting Provider: Inder Ramirez
Was physician already notified: Yes
Activity As Directed
Activity Level: As Tolerated
Bedside Glucose Monitoring As Directed
Frequency: AC&HS
Additional Instructions:: Change to q6h if pt on TPN, tube feeding or not eating
Strain Urine As Directed
Vital Signs As Directed
Frequency: Per unit guidelines
DX Deep Vein Thrombosis Video Routine
04/10/25 22:00
CefTRIAXone [Rocephin] 1,000 mg IV Q24H
Tamsulosin [Flomax] 0.4 mg PO HS
04/11/25 00:00
Insulin Aspart Corrective Low [Novolog Flexpen-Low Resistance] See Protocol SC Q6
04/11/25 07:02
Complete Blood Count/With Diff IN AM
Comprehensive Metabolic Panel IN AM
Glycohemoglobin (HgbA1c) IN AM
04/11/25 08:00
Amlodipine [Norvasc] 2.5 mg PO DAILY
Ezetimibe [Zetia] 10 mg PO DAILY
Heparin 5,000 units SC Q12
Metoprolol [Lopressor] 50 mg PO BID
Rosuvastatin Calcium [Crestor] 10 mg PO DAILY
aspirin 81 mg PO DAILY
Abnormal Lab Results
04/10/25 04/10/25
17:47 17:52
WBC 13.8 H 10^3/uL
(4.8-10.8)
Abs Immat Gran (auto) 0.1 H 10^3/uL
(0-0.05)
Absolute Neuts (auto) 10.8 H 10^3/uL
(1.4-6.5)
Absolute Monos (auto) 1.1 H 10^3/uL
(0.1-0.6)
Neutrophils % 78.3 H %
(42.2-75.2)
Lymphocytes % 12.9 L %
(20.5-51.1)
BUN 33 H mg/dl
(9-20)
Creatinine 1.8 H mg/dL
(0.7-1.3)
Glucose 327 H mg/dl
(70-99)
Urine Ketones 1+ A
(Negative)
Ur Occult Blood Reflex 3+ A
(Negative)
Urine RBC 11-15 A /HPF
(0-2)
Urine WBC (Reflex) 11-15 A /HPF
(0-5)
Urine Bacteria (Reflex) Few A
(Negative)
Urine Glucose 4+ A
(Negative)
Urine Albumin (Reflex) 1+ A
(Neg - Trace)
04/10/25 17:47
04/10/25 17:47
Vital Signs
Initial and Last Documented VS:
Initial Vital Signs
Temp Pulse Resp BP Pulse Ox
98.4 F 82 20 167/105 98
04/10/25 17:35 04/10/25 17:35 04/10/25 17:35 04/10/25 17:35 04/10/25 17:35
Last Documented Vital Signs
Temp Pulse Resp BP Pulse Ox
98.3 F 71 16 146/78 98
04/12/25 11:20 04/12/25 11:20 04/12/25 11:20 04/12/25 11:20 04/12/25 12:01
MDM/Problems Addressed
Differential Diagnosis Includes:
kidney/ureteral stone, pyelonephritis, UTI
MDM/Problems Addressed:
64-year-old male with history of CAD, HTN, HLD, kidney stones, NIDDM, cardiac stent 2016 presents for right flank pain that started yesterday, feels like previous kidney stone. Pain was 10/10 yesterday driving home from [place]. Now pain 7/10, took
Ibuprofen earlier today. Denies fever, chills, feels a little nauseous, no vomiting.
Afebrile, NAD
CBC: WBC 13.8
CMP: BUN/creatinine 33/1.8, glucose 327
UA: +1 ketones, 3+ occult blood, negative nitrates and negative leukocytes, RBCs 11-15, WBCs 11-15
7:40 PM:
Received a text from urologist Dr. Ramirez requesting patient be admitted as he looked at the CAT scan and there is a proximal right ureteral stone with obstruction. He request admission to hospitalist because of VERONICA and he is planning for
cystoscopy/stent/laser tomorrow morning
hospitalist notified of admission
*Pulse Oximetry
SaO2: 98
Oxygen Mode of Delivery: Room air
Patient hypoxic: not evaluated
*Critical Care Note
Total Time (30-74mins, 75-104mins- exclusive of procedures): Not Applicable
ED Attending Note
-
Portions of this chart may have been created with voice recognition software.� Occasional wrong word or��sound alike� substitutions may have occurred due to the inherent limitations of voice recognition software.
Discharge Plan
Departure
Patient Disposition: Admit
Date of Disposition: 04/10/25
Time of Disposition: 19:45
Admit to: Med/Surg
Presentation/result/management discussed w/ accepting MD/DO: Hospitalist
Patient with high blood pressure during this ER visit?: No
Condition: Good
Discharge Problem:
Calculus of proximal right ureter, VERONICA (acute kidney injury)
Interventions
Interventions:
*General Assessment Last Done: 04/10/25 19:33
*Neglect/Abuse Screening Last Done: 04/10/25 17:35
*ED COVID-19 Vaccine History Last Done: 04/10/25 17:35
*ED Influenza Vaccine History Last Done: 04/10/25 17:35
[facility] Fall Risk Assessment Tool Last Done: 04/10/25 19:33
*Risk Screen - Suicide (C-SSRS) Last Done: 04/10/25 17:35
*Nursing Disposition Last Done: 04/10/25 20:41
BU-Ymirus-Hhisingoze Assessment Last Done: 04/10/25 19:34
ED-Male Genitourinary Assessment Last Done: 04/10/25 19:34
Discharge Date and Time
Discharge Date/Time: 04/10/25 20:53
[2025-04-10 19:21] VITALS: BP 163/94
[2025-04-10] MEDS: NSS 1000 IV ×2 (19:32→22:34)
[2025-04-10] MEDS: ZOFRAN 4 MG IV (19:32)
[2025-04-10 19:33] VITALS: BMI 31.9
[2025-04-10] MEDS: TORADOL 15 MG IV (19:33)
[2025-04-10] MEDS: ROCEPHIN 1000 MG IV (19:44)
--- NOTE | 2025-04-10 20:12 | HPS.HSE ---
Family Physician
-
Family Physician: Ellen Arboleda MD
Chief Complaint
-
right flank pain
History of Present Illness
64-year-old male past medical history of CAD status post stent, hypertension, hyperlipidemia, kidney stones, diabetes, presenting with right flank pain that started yesterday which feels like prior kidney stones. Pain was 10 out of 10 yesterday.
No fevers or chills. Has some nausea without vomiting. Denies any burning with urination or blood in the urine. He has been eating and drinking less than the past day.
He denies smoking or alcohol use.
Medical History
Past Medical History
Past Medical History: Reports Other ( CAD status post stent, hypertension, hyperlipidemia, kidney stones, diabetes,)
Past Surgical History: Reports None
Social History
Tobacco: Non-smoker
Alcohol: None
Drug: None
Family History
Family History: Not pertinent
Allergies / Home Medications
Allergies reflects when Allergies were last updated in [employer].
Home Medications with original date entered in [employer]
Allergy/Medication List:
Allergies
Allergy/AdvReac Type Severity Reaction Status Date / Time
No Known Allergies Allergy Verified 04/10/25 17:34
Home Medications
lisinopril 20 mg tablet 20 mg PO DAILY Blood Pressure 05/29/16
metoprolol tartrate 50 mg tablet 50 mg PO BID Blood Pressure 05/29/16
amlodipine 2.5 mg tablet 2.5 mg PO DAILY Blood Pressure 12/16/23
dapagliflozin propanediol 5 mg tablet (Farxiga) 5 mg PO DAILY Diabetes 12/16/23
ezetimibe 10 mg tablet 10 mg PO DAILY High Cholesterol 12/16/23
metformin 500 mg tablet 500 mg PO BID Diabetes 12/16/23
aspirin 81 mg tablet 81 mg PO DAILY 04/10/25
ibuprofen 200 mg tablet 400 mg PO DAILYPRN PRN mild pain 04/10/25
rosuvastatin 10 mg tablet 10 mg PO DAILY 04/10/25
tamsulosin 0.4 mg capsule 0.4 mg PO HS 04/10/25
Review of Systems
-
History Source: Patient
A 12 point ROS was completed and negative except as noted: Yes
Constitutional: Reports No Symptoms
EENT: Reports No Symptoms
Respiratory: Reports No Symptoms
Cardiac: Reports No Symptoms
Abdomen/GI: Reports No Symptoms
: Reports See HPI
Musculoskeletal: Reports No Symptoms
Skin: Reports No Symptoms
Neurological: Reports No Symptoms
Endocrine: Reports No Symptoms
Hematologic/Lymphatic: Reports No Symptoms
Psych: Reports No Symptoms
Physical Exam
Vital Signs
Vital Signs
Temp Pulse Resp BP Pulse Ox
98.4 F 82 20 163/94 98
04/10/25 17:35 04/10/25 17:35 04/10/25 17:35 04/10/25 19:21 04/10/25 19:01
Physical Exam
General: Well Developed, Well Nourished and No Apparent Distress
HEENT: NormoCephalic, Moist mucous membranes and Atraumatic
Respiratory: Clear
Cardiac: S1/S2 and Regular Rhythm; No Murmur or Rub
GI: Soft, Non Tender, Non Distended and Normal Bowel Sounds; No Organomegaly
Rectal: Deferred by Provider
Musculoskeletal: No Clubbing, No Cyanosis and No Edema
Skin: No Rash
Neuro: Nonfocal/grossly intact
Laboratory Results
-
04/10/25 17:47
04/10/25 17:47
Laboratory Results
Total Bilirubin 1.1 mg/dl (0.2-1.3) 04/10/25 17:47
AST 21 U/L (17-59) 04/10/25 17:47
ALT 21 U/L (0-50) 04/10/25 17:47
Alkaline Phosphatase 68 U/L (38-126) 04/10/25 17:47
Data Reviewed
-
Lab Data: Labs Reviewed by me
Old Records: Reviewed
Impression/Plan
-
IMPRESSION:
PLAN:
# Proximal right ureteral stone
# History of nephrolithiasis
- Urinalysis shows 11-15 WBC,
- IV fluids
- Ceftriaxone
-Continue tamsulosin
- Urology consulted and planning on operating room tomorrow
-Strain urine
- N.p.o. postmidnight
- Zofran, Dilaudid as needed
# Acute kidney injury
- IV fluids
- Hold lisinopril, ibuprofen
CAD status post stent
- Continue aspirin
- Continue metoprolol
Essential hypertension
- Continue amlodipine
- Hold lisinopril
Hyperlipidemia
- Continue Zetia, statin
Type 2 diabetes
- Hold dapagliflozin
- Hold metformin
- Insulin sliding scale
Full code
DVT prophylaxis�heparin
N.p.o. past midnight
[2025-04-10 20:21] VITALS: BP 161/86
[2025-04-10 21:02] VITALS: BP 144/86
[2025-04-10 21:05] VITALS: BMI 31.8
[2025-04-10] MEDS: FLOMAX 0.4 MG PO (22:41)
[2025-04-10 23:18] VITALS: BP 161/81
[2025-04-11] VITALS (13 sets, daily range): BP systolic 94–159; BP diastolic 59–88
[2025-04-11 00:14] LABS: Glucose - Point of Care 247 mg/dl (70-99)
[2025-04-11] MEDS: NOVOLOG FLEXPEN-LOW RESISTANCE 2 UNITS SC (00:31)
[2025-04-11] MEDS: TYLENOL 650 MG PO (00:35)
[2025-04-11 06:09] LABS: Glucose - Point of Care 261 mg/dl (70-99)
[2025-04-11] MEDS: NOVOLOG FLEXPEN-LOW RESISTANCE 3 UNITS SC ×3 (06:47→17:47)
[2025-04-11 07:37] LABS: Hematocrit 41.4 % (39.0-52.0); Hemoglobin 14.1 g/dL (13.0-18.0); Mean Corp Hgb Conc. 34.1 g/dL (33.0-37.0); Mean Corpuscular Volume 85.0 fL (80.0-94.0); Nucleated Red Blood Cells % 0 % (-); Platelet Count 188 10^3/uL (130-400); Red Cell Dist. Width 13.0 % (11.5-14.5)
[2025-04-11] MEDS: NSS 1000 IV ×2 (08:21→19:11)
--- NOTE | 2025-04-11 08:21 | CONS.URO ---
Consultation
-
Date/Time Consultation Performed: 04/11
Requesting Provider: ED
Performing Provider: James
Reason for Consultation: obstructing proximal right ureteral stone, VERONICA
Medical History
History of Present Illness
64M with h/o CaOx nephrolithiasis known to me presenting to [facility] ED w/ acute onset of right flank pain beginning 24 hrs prior - '10 out of 10.'
Denies F/C.
+Nausea w/o vomiting.
Denies hematuria or dysuria.
Notes decreased appetite and fluid intake.
12/2023: s/p left PCNL of large left staghorn stone (>4.5 cm).
02/2024: s/p left ULS - clearing of LLP renal stones.
Past Medical History
Past Medical History: CAD, HTN, NIDDM and Other (HLD, CaOx nephrolithiasis)
Past Surgical History: Urological (12/2023: left PCNL, 02/2024: left ULS)
Social History
Tobacco: Non-smoker
Alcohol: None
Drug: None
Personal:
Living: With Family
Employment: Employed
Family History
Family History: Reviewed & Not Pertinent
Allergies/Home Medications
Allergies
Allergy/AdvReac Type Severity Reaction Status Date / Time
No Known Allergies Allergy Verified 04/10/25 17:34
Home Medications
�Medication �Instructions �Recorded �Confirmed �Type
lisinopril 20 mg tablet 20 mg PO DAILY Blood Pressure 05/29/16 04/10/25 History
metoprolol tartrate 50 mg tablet 50 mg PO BID Blood Pressure 05/29/16 04/10/25 History
amlodipine 2.5 mg tablet 2.5 mg PO DAILY Blood Pressure 12/16/23 04/10/25 History
dapagliflozin propanediol 5 mg 5 mg PO DAILY Diabetes 12/16/23 04/10/25 History
tablet (Farxiga)
ezetimibe 10 mg tablet 10 mg PO DAILY High Cholesterol 12/16/23 04/10/25 History
metformin 500 mg tablet 500 mg PO BID Diabetes 12/16/23 04/10/25 History
aspirin 81 mg tablet 81 mg PO DAILY 04/10/25 04/10/25 History
ibuprofen 200 mg tablet 400 mg PO DAILYPRN PRN mild pain 04/10/25 04/10/25 History
rosuvastatin 10 mg tablet 10 mg PO DAILY 04/10/25 04/10/25 History
tamsulosin 0.4 mg capsule 0.4 mg PO HS 04/10/25 04/10/25 History
Review of Systems
-
History Source: Patient
A 12 point Review of Systems was completed except as noted: Yes
Constitutional: Reports No Symptoms
EENT: Reports No Symptoms
Respiratory: Reports No Symptoms
Cardiac: Reports No Symptoms
Abdomen/GI: Reports Nausea
: Reports Flank Pain
Musculoskeletal: Reports No Symptoms
Skin: Reports No Symptoms
Neurological: Reports No Symptoms
Endocrine: Reports No Symptoms
Hematologic/Lymphatic: Reports No Symptoms
Psych: Reports No Symptoms
Physical Exam
Vital Signs
Vital Signs
Temp Pulse Resp BP Pulse Ox
98.9 F 75 16 147/85 99
04/11/25 07:15 04/11/25 07:15 04/11/25 07:15 04/11/25 07:15 04/11/25 07:15
Lab / Testing Results
Laboratory Results
04/11/25 07:02
Physical Exam
General: Well Developed and Well Nourished
HEENT: Normocephalic and Anicteric
Respiratory: Non Labored Respirations
Cardiac: S1/S2
Breast: N/A
GI: Soft, Non Tender and Non Distended
Rectal: Deferred by Provider
Genito-urinary: Clear Urine
Musculoskeletal: No Edema
Skin: Warm and Dry
Neuro: AO x 3, No Motor Deficits and Nonfocal/Grossly Intact
Hematologic/Lymphatic: No Lymphadenopathy
Psych: Calm and Intact Judgement
Assessment / Plan
-
Obstructing proximal right ureteral stone
VERONICA
H/o CaOx nephrolithiasis
Afebrile, VSS
UA 11-15 WBCs, +RBCs
UC pending
WBC >13
Cr 1.8 (baseline 0.9)
- To OR this AM for right ULS vs. stent placement only
- Continue IV Ceftriaxone
- F/U UCx sensitivities
Detailed discussion including SDM had w/ patient and spouse regarding potential risks and complications of ureteroscopy, laser lithotripsy, stone extraction, stent placement including but not limited to urosepsis, bleeding, ureteral/bladder injury,
risk of ureteral stricture formation, need for additional procedures/surgeries in future.
D/w patient and spouse.
Data Reviewed
-
Total Time Spent with Patient (in minutes): 35
CT Scan: Image personally visualized and interpreted, Report Reviewed by Me, Discussed with Physician, Discussed with Patient and Discussed with Family
Lab Data: Labs Reviewed, Discussed with Physician, Discussed with Patient and Discussed with Family
Old Records: Reviewed
[2025-04-11 08:30] LABS: ALT (SGPT) 17 U/L (0-50); AST (SGOT) 17 U/L (17-59); Albumin 3.9 g/dl (3.5-5.0); Alkaline Phosphatase 56 U/L (38-126); Blood Urea Nitrogen 32 mg/dl (9-20); Calcium 8.2 mg/dl (8.4-10.2); Carbon Dioxide 24 mmol/L (22-30); Chloride 101 mmol/L (98-107); Estimated Creatinine Clearance 46 ml/min; Glucose 268 mg/dl (70-99); Potassium 4.3 mmol/L (3.5-5.1); Sodium 135 mmol/L (135-145); Total Protein 6.7 g/dl (6.3-8.2); eGFR 41.51
--- NOTE | 2025-04-11 09:25 | W.IMMPOSTOP ---
Surgical Immed Post Op Note
-
Primary Surgeon: James
Pre-op Diagnosis: cUTI, VERONICA, obstructing right ureteral stone
Post-op Diagnosis: Same
Procedure Performed: cystoscopy + right URS, stone manipulation, stent insertion
Anesthesia Type: LMA
Specimen / Cultures: None/None
Estimated Blood Loss: Negligible
Drains: 4.8Fr x 24 cm JJ right ureteral stent ([employer])
Complications: None
Operative Findings:
1. Right ureteroscopy - inflamed right ureter w/ grossly debris-filled right collecting system - decision made to not instrument further, stent inserted.
2. Final KUB and cystoscopy confirming appropriate stent position.
D/w spouse postop (Krsitin).
[2025-04-11 09:34] LABS: Glucose - Point of Care 237 mg/dl (70-99)
[2025-04-11 10:17] LABS: Glycohemoglobin (HgbA1c) 11.1 % (4.0-5.9)
--- NOTE | 2025-04-11 10:19 | PTCARENOTE ---
1015 Pt arrived in bed from PACU. VSS. No complaints of pain. Oriented to room and call hoffmann.
[2025-04-11 10:21] LABS: Glucose - Point of Care 287 mg/dl (70-99)
[2025-04-11] MEDS: CRESTOR 10 MG PO (10:23)
[2025-04-11] MEDS: NORVASC 2.5 MG PO (10:23)
[2025-04-11] MEDS: LOW STRENGTH ASPIRIN 81 MG PO (10:23)
[2025-04-11] MEDS: ZETIA 10 MG PO (10:23)
[2025-04-11] MEDS: LOPRESSOR 50 MG PO ×2 (10:23→19:43)
[2025-04-11] MEDS: HEPARIN 5000 UNITS SC ×2 (10:24→19:42)
--- NOTE | 2025-04-11 15:40 | CM ---
CM met with pt bedside post-op
Pt admitted for ureteral stone and in OR today for cysto/uteroscopy with stet
--- NOTE | 2025-04-11 15:41 | CM ---
CM met with pt bedside post-op
Pt resides with his spouse in a 2SH with 0STE, first floor setup
Pt is independent with his ADLs, denies use of DMEs
PCP- Ellen Arboleda
Rx- PIETRO Hayden
Pt admitted with for ureteral stone and in OR today for cysto/ureteroscopy with stent
Discharge Disposition- anticipate home no needs
--- NOTE | 2025-04-11 15:56 | W.PN.HOSP.TC ---
Today's Communication/Plan
-
Assessment / Plan
Assessment / Plan
General: No Apparent Distress, Comfortable and Conversant
HEENT: NormoCephalic, Moist mucous membranes, Atraumatic
Respiratory: Clear and Non Labored Respirations
Cardiac: S1/S2 and Regular Rhythm; No Rub or Gallop
GI: Soft, Non Tender, Non Distended and Normal Bowel Sounds
Musculoskeletal: No Edema, no deformity
Skin: Warm and dry
: NO Wolf
Neuro: Awake, Alert, Nonfocal/grossly intact
Psych: Calm and Intact Judgment/Insight
Mr. Enriquez is a 64-year-old male with a medical history of CAD (PCI with stent), hypertension, NIDDM, and kidney stones presenting with right flank pain similar to prior kidney stones. He was started on antibiotics, IV fluids, and pain control and
admitted for further evaluation and management.
Impacted right ureteral stone with obstructive uropathy:
- Brought to the OR with urology today 04/11 with right ureteral stent placement
- Pain resolved postprocedure, leukocytosis resolving
- Continue IV fluids and antibiotics, cultures pending
VERONICA:
- Likely related to obstructive uropathy in the setting of infected right ureteral stone which has been addressed as outlined above
- Most recent creatinine on EMR 0.8 and December 2023, was 1.8 upon arrival
- Continue IV fluids
- Holding ANA MARIA inhibitor
Hypertension:
- Continue home amlodipine 2.5 mg p.o. daily
- Holding home lisinopril due to VERONICA
- Additional IV hydralazine as needed for SBP greater than 170
NIDDM, uncontrolled:
- Takes metformin and Farxiga at home, currently holding both due to VERONICA
- Hemoglobin A1c 11.1%
- Starting basal insulin regimen with Lantus 4 units nightly, additional short acting insulin as needed per sliding scale
- Diabetic diet
- Will consult diabetes nurse practitioner
CAD:
- Stable, history of stent
- Continue aspirin and statin
- Beta-blockade with home metoprolol tartrate 50 mg p.o. twice daily
DVT prophylaxis: Subcu heparin
CODE STATUS: Full code
Anticipated Discharge: 24 - 48 hours
Subjective/Interval History
-
Date of Service: April 11, 2025
Patient was seen and examined at bedside this morning. He just returned from OR with urology for right ureteral stent placement.
Objective Data
-
Labs:
Laboratory Results
04/11/25
07:02
WBC 9.7
Hgb 14.1
Hct 41.4
Plt Count 188
Sodium 135
Potassium 4.3
Chloride 101
Carbon Dioxide 24
BUN 32 H
Creatinine 1.8 H
Glucose 268 H
Calcium 8.2 L D
Total Bilirubin 0.8
AST 17
ALT 17
Alkaline Phosphatase 56
Vital Signs:
Vital Signs
Temp Pulse Resp BP Pulse Ox
99.0 F 77 16 159/77 96
04/11/25 15:20 04/11/25 15:20 04/11/25 15:20 04/11/25 15:20 04/11/25 15:20
I&O
04/10/25 04/11/25 04/12/25
06:59 06:59 06:59
Intake Total 1490 / 1490
Balance 1490 / 1490
Review of Systems
-
History Source: Patient
All other systems: Reviewed and negative
Physical Exam
-
General: No Apparent Distress
[2025-04-11 17:39] LABS: Glucose - Point of Care 290 mg/dl (70-99)
[2025-04-11] MEDS: STERILE WATER FOR INJECTION 10 ML IV (19:43)
[2025-04-11] MEDS: ROCEPHIN 1000 MG IV (19:43)
[2025-04-11 21:42] LABS: Glucose - Point of Care 316 mg/dl (70-99)
[2025-04-11] MEDS: LANTUS 0.04 UNITS SC (21:45)
[2025-04-11] MEDS: FLOMAX 0.4 MG PO (21:45)
[2025-04-11] MEDS: NSS IV (22:44)
[2025-04-12 03:15] VITALS: BP 135/78
[2025-04-12] MEDS: NSS 1000 IV (03:30)
[2025-04-12 07:34] LABS: Hematocrit 36.6 % (39.0-52.0); Hemoglobin 12.7 g/dL (13.0-18.0); Mean Corp Hgb Conc. 34.7 g/dL (33.0-37.0); Mean Corpuscular Volume 83.6 fL (80.0-94.0); Nucleated Red Blood Cells % 0 % (-); Platelet Count 189 10^3/uL (130-400); Red Cell Dist. Width 12.8 % (11.5-14.5)
[2025-04-12 07:35] VITALS: BP 124/74
[2025-04-12 08:16] LABS: Blood Urea Nitrogen 30 mg/dl (9-20); Calcium 8.1 mg/dl (8.4-10.2); Carbon Dioxide 25 mmol/L (22-30); Chloride 108 mmol/L (98-107); Estimated Creatinine Clearance 83 ml/min; Glucose 224 mg/dl (70-99); Potassium 4.2 mmol/L (3.5-5.1); Sodium 137 mmol/L (135-145); eGFR > 60.00
[2025-04-12] MEDS: ZETIA 10 MG PO (08:17)
[2025-04-12] MEDS: LOW STRENGTH ASPIRIN 81 MG PO (08:17)
[2025-04-12] MEDS: NORVASC 2.5 MG PO (08:17)
[2025-04-12] MEDS: CRESTOR 10 MG PO (08:17)
[2025-04-12] MEDS: LOPRESSOR 50 MG PO (08:17)
[2025-04-12] MEDS: HEPARIN 5000 UNITS SC (08:18)
[2025-04-12 08:21] LABS: Glucose - Point of Care 222 mg/dl (70-99)
[2025-04-12] MEDS: NOVOLOG FLEXPEN-LOW RESISTANCE 2 UNITS SC (08:21)
--- NOTE | 2025-04-12 08:50 | W.PN.URO.CBU ---
Today's Communication / Plan
-
OK to d/c home from urologic standpoint
Advise empiric course of Cephalexin x7 days based on intraop appearance of urine
F/U in 1-2 weeks for preop visit w/ Dr. Ramirez
Plan for outpatient right ULS in ~2 weeks
Assessment / Plan
-
VERONICA
Obstructing right ureteral stone
cUTI - intraop appearance c/w UTI
04/11: s/p cystoscopy + right ureteral stent insertion
Cr normalized (1.0) s/p stent insertion
UCx NG
BCx NG
Diagnosis
-
Date of Service: April 12, 2025
-
Patient Diagnosis:
VERONICA
Obstructing right ureteral stone
cUTI
Post Op Day:
04/11: s/p cystoscopy + right ureteral stent insertion
Subjective
-
Feels well.
Afebrile.
Tolerating diet.
Eager to go home.
Objective
-
Vital Signs
Temp Pulse Resp BP Pulse Ox
99.0 F 70 16 124/74 98
04/12/25 07:35 04/12/25 08:17 04/12/25 07:35 04/12/25 08:17 04/12/25 07:35
Intake and Output
04/11/25 04/12/25 04/13/25
06:59 06:59 06:59
Intake Total 3410 / 3410
Output Total 300 / 300
Balance 3110 / 3110
Intake:
Oral fluids 720 / 720
IV fluids (Total) 2690 / 2690
normosol 50 / 50
Output:
Urine, Voided 300 / 300
Other:
How many times incontinent 2
MODERATE amount urine
Number of approximated SMALL 2
amounts of urine
Laboratory Results
04/12/25 07:15
04/12/25 07:15
Physical Exam
-
General - well developed, well nourished, no acute distress
Abdomen - soft, non-tender, non-distended, no CVAT
- normal
Counseling
-
D/w patient.
D/w spouse (Fe).
Care Review
Data Reviewed
Discussed with: Hospitalist, Nursing and Family
CT Scan: Report Pers Reviewed and Image Pers Reviewed
Total Time Spent with Patient (in minutes): 20
[2025-04-12 11:20] VITALS: BP 146/78
--- NOTE | 2025-04-12 11:25 | W.DCSUMMARY ---
Discharge Summary
Discharge Data
Date of Admission: 04/10/25
Date of Discharge: 04/12/25
Total time spent discharging patient (in min): 46
-
Pending Results: No
Hospital Course
Mr. Enriquez is a 64-year-old male with a medical history of CAD (PCI with stent), hypertension, NIDDM, and kidney stones presenting with right flank pain similar to prior kidney stones. CT imaging showed an impacted right ureteral stone with
postobstructive uropathy. He had a mild VERONICA with a creatinine of 1.8. He was started on antibiotics, IV fluids, and pain control and admitted for further evaluation and management.
He was brought to the OR with urology on 04/11 at which time a right ureteral stent was placed bypassing the impacted kidney stone. His pain resolved postprocedure. His leukocytosis and VERONICA also resolved. He was treated with IV ceftriaxone while
inpatient and has been transitioned to oral Keflex for 7 days after discharge. He will need close follow-up with his urologist in 2 weeks for stent removal and treatment of the kidney stone unless it has passed on its own.
His blood sugar was uncontrolled with a hemoglobin A1c of 11.1% at the time of this admission. He was started on long-acting insulin. He will be discharged with a prescription for Lantus 10 units nightly. His home metformin dose has been
increased to 850 mg twice daily and his Farxiga dose has been increased to 10 mg daily. He will need close follow-up with his primary care physician for ongoing blood glucose monitoring and medication adjustments as needed. He has also been
counseled about a diabetic diet and exercise.
General: No Apparent Distress, Comfortable and Conversant
HEENT: NormoCephalic, Moist mucous membranes, Atraumatic
Respiratory: Clear and Non Labored Respirations
Cardiac: S1/S2 and Regular Rhythm; No Rub or Gallop
GI: Soft, Non Tender, Non Distended and Normal Bowel Sounds
Musculoskeletal: No Edema, no deformity
: NO Wolf
Neuro: Awake, Alert, Nonfocal/grossly intact
Psych: Calm and Intact Judgment/Insight
Discharge Plan
-
Patient Disposition: Home (Routine Discharge)
Discharge Diagnosis/Procedures: Impacted right ureteral stone with obstructive uropathy
VERONICA
Uncontrolled diabetes mellitus
Activity Restrictions/Additional Instructions:
You were admitted for treatment of an impacted kidney stone. You are brought to the OR with urology on 04/11 and a stent was placed in your right ureter, bypassing the impacted stone. Your pain resolved with this treatment and your kidney function
returned to normal. You were started on a course of antibiotics and will continue antibiotics after leaving the hospital. You will need to follow-up closely with your urologist in the outpatient office for removal of the stent and treatment of the
kidney stone unless it has passed on its own. You were started on insulin for treatment of your uncontrolled blood sugars. You will need ongoing close monitoring of your blood sugars and follow-up with your primary care physician after hospital
discharge for medication adjustments as needed.
Referrals:
Ellen Arboleda MD [Family Provider, Internal Medicine]
Inder Ramirez MD [Active, Urology]
Referral Note: Please call Dr. Ramirez's office to schedule a preop visit within 7-10 days of discharge - at this visit, you will sign surgical consent and confirm date for surgery
Prescriptions:
New
dapagliflozin propanediol 10 mg Tablet
10 mg PO DAILY Qty: 30 0RF
metformin 850 mg Tablet
850 mg PO BID@0800,1700 Qty: 60 0RF
cephalexin 500 mg capsule
500 mg PO BID 7 Days Qty: 14 0RF
Continued
lisinopril 20 MG tablet
20 mg PO DAILY
metoprolol tartrate 50 MG tablet
50 mg PO BID
amlodipine 2.5 mg Tablet
2.5 mg PO DAILY
ezetimibe 10 mg Tablet
10 mg PO DAILY
tamsulosin 0.4 mg Capsule
0.4 mg PO HS
ibuprofen 200 mg Tablet
400 mg PO DAILYPRN PRN (Reason: mild pain)
aspirin 81 mg Tablet
81 mg PO DAILY
rosuvastatin 10 mg tablet
10 mg PO DAILY
Discontinued
metformin 500 mg Tablet
500 mg PO BID
dapagliflozin propanediol [Farxiga] 5 mg Tablet
5 mg PO DAILY
Discharge Date and Time
Print Language: AFGHAN
[2025-04-12 11:50] LABS: Glucose - Point of Care 199 mg/dl (70-99)
[2025-04-12] MEDS: GLUCOPHAGE 850 MG PO (11:52)
[2025-04-12] MEDS: FARXIGA 10 MG PO (11:52)
--- NOTE | 2025-04-12 12:16 | CM ---
CM reviewed chart and noted dc order
Bedside meeting with pt
No dc needs noted- awaiting DM teaching for new insulin
He has alerted family of dc
Discharge Disposition- home, no needs, family transport
--- NOTE | 2025-04-12 12:53 | PN.DE.MGMTRT ---
Insulin Management
- -
04/12/2025 Diabetes Management Consult
64 year old male admitted 04/07 with R flank pain - r ureteral stone with obstructive uropathy. PMH CAD, PCI w stent, HTN, diabetes, kidney stones. Prior to admission was taking farxiga 5 mg daily and metformin 500 mg BID. A1C on admission
11.1%, cr 1.8, eGFR 41.51.
POD 1 s/p ureteral stent placement. Patient is awake alert and oriented, resting in bed. States he has had diabetes 1 1/2 years and follows with family provider for ongoing care. States over the past 2 months has been indulging in soda, sweets
and larger portions of food due to the holidays and he attributed his increased A1C to that. He states he has a glucose monitor but has slacked off on testing. Discussed the importance of glucose control, resuming dietary guidelines, excluding
regular soda. Explained the need for long acting insulin at this time, he is agreeable.
Received 4 units lantus @ hs, fasting glucose 222 this AM. Will increase HS lantus to 10 units. cr 1, eGFR > 60, will resume farxiga at increased dose of 10 mg daily and metformin to 850 mg BID. Recommended to patient to test his glucose at
least two times per day, pattern provided and that results should be reported to his primary doctor. Demonstrated and provided printed instructions for steps for insulin pen prep and injection technique, patient verbalized understanding.
RX for lantus and pen needles in ambulatory orders.
Discussed with nurse.
Diabetes History
- -
Type of Diabetes: 2
Pre-Admission Diabetes Regimen
04/12/25
07:15
Creatinine 1.0
Lab Results
Hemoglobin A1c 11.1 % (4.0-5.9) H 04/11/25 07:02
Insulin Pump Settings
IP Diabetes Regimen
04/11/25 04/11/25 04/12/25
17:38 21:40 07:15
Glucose 224 H
POC Glucose 290 H 316 H
04/12/25 04/12/25
08:20 11:48
Glucose
POC Glucose 222 H 199 H
Meal type: Breakfast
Amount consumed: 100%
Patient Education
--- NOTE | 2025-04-12 14:07 | PTCARENOTE ---
04/12/2025 DIABETES EDUCATION CONSULT
I met with patient to review diabetes management. He is inpatient with kidney stones, current HbA1c is 11.1%. Anders sees Ellen Clarke MD, his A1c 18 months ago was 6.4% (10.7% 08/04/2023). Was taking Farxiga 5 mg and Metformin 500 mg BID prior
to IP stay. No prescribed basal/bolus regimen.
I educated on physiology of T2D, organ damage, managing with medications, monitoring BG, nutrition, activity, sleep and managing stress. I reinforced signs of hyperglycemia, hypoglycemia and hypoglycemia protocol; BS parameters and recommended HbA1c
goals, glucometer and CGM instructions, glucose tracker, medic alert bracelet and outpatient DSME program. Written material provided.
He declined glucometer instructions as he knows how to check his glucose. Use to check daily, no longer checking because BS was 120 and Md states she was OK with no longer checking blood sugar.
I educated and demonstrated on insulin injection technique, timing, and storage. Discussed long and short acting insulin; onset/peak/duration, and encouraged her to administer self injections with RN supervision while admitted. Discussed normal
target glucose ranges and a monitoring schedule 15 minutes before each meal when prescribed Novolog, and before bedtime.
Encouraged patient to follow up with PCP for post d/c appointment and to monitor medication and blood glucose levels. Provided list of endocrinologists if desired, to contact insurance company to verify in network status. Patient verbalized
understanding.
== END 2025-04-12 13:50 | disposition home or self-care (01) | DRG 660 ==
LOC: 2 SOUTH 20:29
PROVIDERS: ADMITTING PHYSICIAN Hospitalist; ATTENDING PHYSICIAN Internal Medicine; CONSULT PHYSICIAN Surgery; EMERGENCY PHYSICIAN Emergency Medicine; FAMILY PHYSICIAN Emergency Medicine
PROC: 0T768DZ Dilation of Right Ureter with Intraluminal Device, Via Natural or Artificial Opening Endoscopic (ICD-10-PCS; 2025-04-11)
DX: N13.8 Other obstructive and reflux uropathy (principal); N17.9 Acute kidney failure, unspecified; N39.0 Urinary tract infection, site not specified; N20.1 Calculus of ureter; I25.10 Atherosclerotic heart disease of native coronary artery without angina pectoris; I10 Essential (primary) hypertension; E11.65 Type 2 diabetes mellitus with hyperglycemia; E78.00 Pure hypercholesterolemia, unspecified; Z87.442 Personal history of urinary calculi; Z95.5 Presence of coronary angioplasty implant and graft; Z90.5 Acquired absence of kidney; Z79.82 Long term (current) use of aspirin; Z79.84 Long term (current) use of oral hypoglycemic drugs; Z79.899 Other long term (current) drug therapy
CPT/HCPCS: 74018; 74176; 76000; 80048; 80053; 81003; 81015; 82962; 83036; 85025; 87040; 87086; 96361; 96374; 96375; 99285; C1894; C2617